=== PATIENT | male | born 1990 | race Caucasian/White ===

== ENCOUNTER 2021-02-16 15:53 | Emergency (ER) | payer OTHER ==
[2021-02-16] MEDS ORDERED: SILVADENE20 GM TP (17:22)
== END 2021-02-16 19:24 | disposition home or self-care (01) ==
LOC: ER1 15:53
DX: T22.20XA Burn of second degree of shoulder and upper limb, except wrist and hand, unspecified site, initial encounter (principal); T31.0 Burns involving less than 10% of body surface; F17.200 Nicotine dependence, unspecified, uncomplicated
CPT/HCPCS: 99283